=== PATIENT | female | born 1960 | race Caucasian/White ===

== ENCOUNTER 2022-01-13 20:56 | Emergency (ER) | payer SELFPAY ==
[~2022-01-13] VITALS: Ht 167.6 cm; Wt 42.2 kg
[2022-01-13 21:03] VITALS: BP 145/79
[2022-01-13 21:47] VITALS: BP 145/79
--- NOTE | 2022-01-13 21:47 | NUR ---
PATIENT BIB [place] [employer]. PATIENT EXAMINED BY DR. WORKMAN. PATIENT MEDICALLY CLEARED AND RELEASED IN CUSTODY IN STABLE CONDITION. ORIGINAL PRE-BOOK FORM GIVEN TO OFFICER JAC.
== END 2022-01-13 21:47 ==
LOC: MED 20:56
DX: S09.93XA Unspecified injury of face, initial encounter (principal); Z02.89 Encounter for other administrative examinations; Y09 Assault by unspecified means; Y93.89 Activity, other specified; Y92.89 Other specified places as the place of occurrence of the external cause; Y99.8 Other external cause status
CPT/HCPCS: 99283